=== PATIENT | female | born 1935 | race African-American/Black ===

== ENCOUNTER 2018-05-06 23:40 | Inpatient (IN) ==
[2018-05-07] MEDS ORDERED: IBUPROFEN 600 MG TABLET PO STA (00:58)
[2018-05-07 01:59] LABS: Hematocrit 30.4 VOL% (35.7-47.0); Hemoglobin 10.3 GM/DL (12.0-16.0); Immature Granulocytes % 1.6 %; Immature Granulocytes Absolute 0.01 #; Lymphocytes # 0.4 10*3/uL (1.4-4.0); Lymphocytes % 58.7 % (21.3-54.2); Mean Corpuscular HGB Conc 33.9 GM/DL (32-36); Mean Corpuscular Hemoglobin 31 PG (27-34); Mean Corpuscular Volume 92.7 FL (87-102); Monocytes # 0.1 10*3/uL (0.11-0.8); Monocytes % 20.6 % (1.7-12.7); Neutrophils # 0.1 10*3/uL (1.4-7.4); Neutrophils % 19.1 % (38.7-73.9); Platelet Count 87 T/CUMM (130-400); Red Blood Count 3.28 MC/CUMM (3.8-5.5); Red Cell Distribution Width 13.5 % (9.3-17.3)
[2018-05-07 02:08] LABS: White Blood Count 0.6 T/CUMM (4-12)
[2018-05-07] MEDS ORDERED: INSULIN REGULAR 100 UNIT/ML IV STA (02:17)
[2018-05-07] MEDS ORDERED: LACTATED RINGERS 1,000 ML IV ONE (02:31)
[2018-05-07 02:47] LABS: Albumin 2.8 G/DL (3.4-5.0); Bilirubin,Total 0.4 MG/DL (0.2-1.0); Calcium 8.9 MG/DL (8.5-10.1); Lactic Acid 0.7 MMOL/L (0.4-2.0); Osmolality,Calculated 284.5 MOS/KG (273-304)
[2018-05-07 02:56] LABS: Apearance,Urine Clear (Clear); Granular Casts,Urine 1 /LPF (0-1); Hyaline Casts,Urine 11 /LPF (0-3); RBC,Urine 4 /HPF (0-4); Squamous Epithelial Cell,Urine Occasional /HPF (0-10); Urine Color Yellow (Yellow); WBC,Urine <1 /HPF (0-6)
[2018-05-07 02:57] LABS: Bilirubin,Urine Negative (Negative); Blood, Urine Negative (Negative); Glucose,Urine (UA) 150 mg/dL (Negative); Ketones,Urine Negative (Negative); Nitrite,Urine Negative (Negative); Protein,Urine >=500 MG/DL; Urine Specific Gravity 1.005 (1.001-1.035); Urine Urobilinogen < 2.0 EU/DL (0.2-1.0)
[2018-05-07] MEDS ORDERED: CEFEPIME 2,000 MG in SODIUM CHLORIDE 0.9% 100 ML IV STA (03:52)
[2018-05-07] MEDS ORDERED: ONDANSETRON 4 MG/2 ML VIAL IV PRN (04:40)
[2018-05-07] MEDS ORDERED: DEXTROSE 50% 25 GM/50 ML SYRINGE IV PRN (04:40)
[2018-05-07] MEDS ORDERED: DOCUSATE SODIUM 100 MG CAPSULE PO PRN (04:40)
[2018-05-07] MEDS ORDERED: GLUCAGON 1 MG VIAL IM PRN (04:40)
[2018-05-07] MEDS ORDERED: ALBUTEROL/IPRATROPIUM 3 ML NEB RESP TX PRN (04:48)
[2018-05-07 05:02] LABS: Lymphocytes 68 % (20-55); Platelet Estimate Decreased; Segmented Neutrophils 18 % (50-85); Total Cells Counted 100
[2018-05-07 05:03] LABS: Polychromasia Few
[2018-05-07] MEDS: MEROPENEM 500 MG in SODIUM CHLORIDE 0.9% 100 ML IV SCH ×2 (05:39→16:56)
[2018-05-07] MEDS: SODIUM CHLORIDE 0.9% 1,000 ML IV SCH ×2 (05:39→20:46)
[2018-05-07] MEDS: LEVOFLOXACIN INJ 750 MG in PREMIX 1 EACH IV SCH (09:31)
[2018-05-07] MEDS: INSULIN REGULAR 100 UNIT/ML SUBCUT SCH ×4 (09:32→20:46)
[2018-05-07] MEDS: IBUPROFEN 600 MG TABLET PO PRN ×2 (09:32→19:38)
[2018-05-08] MEDS: MEROPENEM 500 MG in SODIUM CHLORIDE 0.9% 100 ML IV SCH ×2 (04:50→18:44)
[2018-05-08 05:37] LABS: Calcium 8.6 MG/DL (8.5-10.1); Potassium 4.1 MMOL/L (3.5-5.1)
[2018-05-08] MEDS: INSULIN REGULAR 100 UNIT/ML SUBCUT SCH ×3 (06:36→18:40)
[2018-05-08 08:09] LABS: Eosinophils % 2.2 % (0.00-10.9); Immature Granulocytes % 6.5 %; Immature Granulocytes Absolute 0.03 #; Lymphocytes # 0.3 10*3/uL (1.4-4.0); Mean Corpuscular HGB Conc 32.6 GM/DL (32-36); Mean Corpuscular Hemoglobin 31 PG (27-34); Mean Corpuscular Volume 95.6 FL (87-102); Mean Platelet Volume 12.9 FL (9.6-12.0); Monocytes # 0.1 10*3/uL (0.11-0.8); Monocytes % 17.4 % (1.7-12.7); Neutrophils # 0.1 10*3/uL (1.4-7.4); Neutrophils % 10.9 % (38.7-73.9); Platelet Count 71 T/CUMM (130-400); Red Blood Count 2.25 MC/CUMM (3.8-5.5); Red Cell Distribution Width 13.3 % (9.3-17.3)
[2018-05-08 08:15] LABS: Hematocrit 21.5 VOL% (35.7-47.0); White Blood Count 0.5 T/CUMM (4-12)
[2018-05-08 08:42] LABS: Band Neutrophils 8 % (0-10); Lymphocytes 62 % (20-55); Platelet Estimate Decreased; Segmented Neutrophils 4 % (50-85); Total Cells Counted 100
[2018-05-08 08:43] LABS: Anisocytosis 1+
[2018-05-08] MEDS: CYANOCOBALAMIN 500 MCG TABLET PO SCH ×2 (10:10→12:49)
[2018-05-08] MEDS ORDERED: SODIUM CHLORIDE 0.9% 1,000 ML IV PRN ×2 (10:36→11:04)
[2018-05-08] MEDS: METOPROLOL SUCCINATE XL 50 MG TABLET PO SCH (12:49)
[2018-05-08] MEDS: hydroCHLOROthiazide 12.5 MG CAPSULE PO SCH ×2 (12:49→13:19)
[2018-05-08] MEDS: FILGRASTIM-SNDZ 300 MCG/0.5 ML SYRINGE SUBCUT SCH (12:50)
[2018-05-08] MEDS: hydroCHLOROthiazide 25 MG TABLET PO SCH ×2 (12:50→13:19)
[2018-05-08] MEDS: SODIUM CHLORIDE 0.9% 1,000 ML IV SCH (18:40)
[2018-05-09] MEDS: INSULIN REGULAR 100 UNIT/ML SUBCUT SCH ×3 (00:38→14:26)
[2018-05-09 05:11] LABS: Calcium 8.6 MG/DL (8.5-10.1); Osmolality,Calculated 287.7 MOS/KG (273-304); Potassium 3.9 MMOL/L (3.5-5.1)
[2018-05-09 05:19] LABS: Basophils % 1.4 % (0.0-0.8); Eosinophils % 1.4 % (0.00-10.9); Hematocrit 25.3 VOL% (35.7-47.0); Hemoglobin 8.3 GM/DL (12.0-16.0); Immature Granulocytes % 6.9 %; Immature Granulocytes Absolute 0.05 #; Lymphocytes # 0.4 10*3/uL (1.4-4.0); Lymphocytes % 56.9 % (21.3-54.2); Mean Corpuscular HGB Conc 32.8 GM/DL (32-36); Mean Corpuscular Hemoglobin 31 PG (27-34); Mean Corpuscular Volume 94.1 FL (87-102); Mean Platelet Volume 12.1 FL (9.6-12.0); Monocytes # 0.1 10*3/uL (0.11-0.8); Monocytes % 18.1 % (1.7-12.7); Neutrophils # 0.1 10*3/uL (1.4-7.4); Neutrophils % 15.3 % (38.7-73.9); Platelet Count 110 T/CUMM (130-400); Red Blood Count 2.69 MC/CUMM (3.8-5.5); Red Cell Distribution Width 13.3 % (9.3-17.3)
[2018-05-09 05:23] LABS: White Blood Count 0.7 T/CUMM (4-12)
[2018-05-09 05:44] LABS: Band Neutrophils 4 % (0-10); Eosinophils 4 % (0-10); Hypochromasia 1+; Lymphocytes 52 % (20-55); Ovalocytes Slight; Platelet Estimate Decreased; Segmented Neutrophils 12 % (50-85); Total Cells Counted 100
[2018-05-09] MEDS: LEVOFLOXACIN INJ 750 MG in PREMIX 1 EACH IV SCH (06:53)
[2018-05-09] MEDS: hydroCHLOROthiazide 12.5 MG CAPSULE PO SCH (10:03)
[2018-05-09] MEDS: METOPROLOL SUCCINATE XL 50 MG TABLET PO SCH (10:03)
[2018-05-09] MEDS: FILGRASTIM-SNDZ 300 MCG/0.5 ML SYRINGE SUBCUT SCH (10:03)
[2018-05-09] MEDS: hydroCHLOROthiazide 25 MG TABLET PO SCH (10:03)
[2018-05-09] MEDS: MEROPENEM 500 MG in SODIUM CHLORIDE 0.9% 100 ML IV SCH (10:04)
[2018-05-09] MEDS: CYANOCOBALAMIN 500 MCG TABLET PO SCH (10:06)
[2018-05-09 12:05] VITALS: BP 160/83
== END 2018-05-09 15:29 | disposition home or self-care (01) | DRG 808 ==
LOC: N.ED 23:40 → N.EDINP 05-07 04:27 → N.4E 05-07 05:10
PROVIDERS: ADMIT Internal Medicine; ATTEND Internal Medicine